=== PATIENT | male | born 1935 | race Caucasian/White ===

== ENCOUNTER 2021-03-10 11:34 | Emergency (ER) | payer MEDICARE, SELFPAY ==
[~2021-03-10] VITALS: Ht 175.3 cm; Wt 99.8 kg
[2021-03-10 11:44] VITALS: BP_SYST 143
--- NOTE | 2021-03-10 11:50 | NUR ---
Pt triaged on ambulance [facility]
--- NOTE | 2021-03-10 11:55 | NUR ---
Pt BIBA re L sided pain after mechanical fall 2 days ago. PMH DM. No pain reported when not moving; otherwise pain 10/08. Awaiting MD muir.
--- NOTE | 2021-03-10 12:00 | NUR ---
Dr Valentino to bedside to assess patient
--- NOTE | 2021-03-10 12:16 | NUR ---
PORITABLE X-RAY AT THE BEDSIDE
[2021-03-10] MEDS ORDERED: KETOROLAC TROMETHAMINE 15 MG VIAL IVP ONE (13:45)
[2021-03-10] MEDS ORDERED: KETOROLAC TROMETHAMINE 15 MG VIAL IM ONE (13:45)
[2021-03-10] MEDS ORDERED: HYDR-3917 PO (14:32)
--- NOTE | 2021-03-10 14:43 | NUR ---
This RN called [facility] (patient's home) at [phone]. Per facility, they do not typically arrange transportation. Will arrange for taxi transport with house sup.
--- NOTE | 2021-03-10 15:17 | NUR ---
Patient given written and verbal discharge instructions and verbalizes understanding. ER MD discussed with patient the results and treatment provided. Patient in stable condition. ID arm band removed. Rx of [place] given. Patient educated on pain management and to follow up with PMD. Pain scale 2/10. Opportunity for questions provided and answered. Medication side effect fact sheet provided.
[2021-03-10 15:18] VITALS: BP_SYST 143
--- NOTE | 2021-03-10 16:44 | NUR ---
Per registration, spike driver came and stated he "has to go to [place] and will then be back" for patient. Patient left in wheelchair in waiting room.
== END 2021-03-10 15:18 | disposition home or self-care (01) ==
LOC: SED 11:34
DX: S22.32XA Fracture of one rib, left side, initial encounter for closed fracture (principal); W18.39XA Other fall on same level, initial encounter; Y93.89 Activity, other specified; Y92.89 Other specified places as the place of occurrence of the external cause; Y99.8 Other external cause status
CPT/HCPCS: 71100; 96372; 99283; J1885